=== PATIENT | female | born 2000 | race African-American/Black ===

== ENCOUNTER 2024-01-12 15:26 | Observation (INO) | payer SELFPAY ==
--- NOTE | ~2024-01-12 | US_ITS ---
EXAMINATION: US OB follow up DATE: 01/12/2024 17:49 ELECTROENCEPHALOGRAPHIC TECHNOLOGIST INDICATION: Follow-up COMPARISON: None TECHNIQUE: Real-time transabdominal obstetric ultrasound. FINDINGS: 7 para 5 Estimated date of delivery by last menstrual period is 05/14/2024 cardiac activity is identified at a rate 136 bpm. A single intrauterine gestation is identified in breech presentation with placenta anterior and low-l purvi (2.7 cm from the cervix). The cervix measures 6.4 cm in length and is heterogeneous in echogenicity. The amniotic fluid index measures 12 cm (normal is between 9.7 and 22 cm) and is subjectively normal. The following biometric data were obtained: Biparietal diameter (BPD): 5.15 cm; head circumference (HC): 19.7 cm; abdominal circumference (AC): 1 6.9 cm; femur length (FL): 3.9 cm. These measurements are concordant. Estimated weight is 487 g +/- 73 g, which correlates with the 34th percentile when 05/17/2024 is used as estimated date of delivery. As single measurements, these parameters are each equal to the following estimated gestational ages: BPD: 21 weeks 4 days. HC: 21 weeks 6 days. AC: 21 weeks 6 days. FL: 22 weeks 3 days. estimated gestational age based solely on measurements from this exam is 22 weeks 0 days +/- 1 weeks 4 days. Estimated date of delivery by ultrasound is 05/17/2024 IMPRESSION: Single intrauterine gestation with an approximate gestational age of 22 weeks and 0 days, with cardiac activity identified. The placenta is low-lying, approximately 2.7 cm away from the cervix which measures 6.4 cm in length but is heterogeneous in echogenicity. Reviewed, dictated and finalized at location A. TROENCEPHALOGRAPHIC TECHNOLOGIST IMPRESSION: Single intrauterine gestation with an approximate gestational age of 22 weeks a nd 0 days, with cardiac activity identified. The placenta is low-lying, approximately 2.7 cm away from the cervix which elsi ures 6.4 cm in length but is heterogeneous in echogenicity.
[2024-01-12 16:02] VITALS: BP 101/58; PULSE 86
--- NOTE | 2024-01-12 16:46 | OBADM ---
This patient, Glenny Olivares, admitted to the OB room OB Post 117 for observation. Patient/family oriented to hospital policies and general routines including ID bracelet, bed and alarms, visiting hours, pain management, procedures, bathroom and other care routines, personal items, smoking policy, room service/diet, and visiting hours. Patient/Family are encouraged to report perceived risks to care and to ask questions if they do not understand what they are told or what they should do.
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
--- NOTE | 2024-01-18 20:28 | PM.OBTRLD ---
OB - Triage/Final Diagnosis Visit Information Comments/Additional reasons for admission: I have assessed the risk for this patient, Glenny Olivares, and determined that she would benefit from observation care. Final Diagnosis (1) Abdominal trauma: Code(s): S39.91XA - Unspecified injury of abdomen, initial encounter Status: Acute (2) : Code(s): Z34.90 - Encounter for supervision of normal , unspecified, unspecified trimester Status: Acute
== END 2024-01-12 17:45 | disposition home or self-care (01) ==
PROVIDERS: Admitting Provider Obstetrics & Gynecology; Visit Provider Obstetrics & Gynecology
DX: O9A.212 Injury, poisoning and certain other consequences of external causes complicating pregnancy, second trimester (principal); S39.91XA Unspecified injury of abdomen, initial encounter; Z3A.22 22 weeks gestation of pregnancy
CPT/HCPCS: 76816; G0378

== ENCOUNTER 2024-02-08 09:35 | Observation (INO) | payer MEDICAID, SELFPAY ==
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
[2024-02-08 09:59] VITALS: BP 109/48; PULSE 99
[2024-02-08 10:01] VITALS: BP 104/56; PULSE 100
[2024-02-08 10:30] VITALS: BP 108/65; PULSE 98
[2024-02-08 10:40] VITALS: BMI 33.7
--- NOTE | 2024-02-08 10:52 | OBADM ---
This patient, Glenny Olivares, admitted to the OB room 113 for observation. Patient/family oriented to hospital policies and general routines including ID bracelet, bed and alarms, visiting hours, pain management, procedures, bathroom and other care routines, personal items, smoking policy, room service/diet, and visiting hours. Patient/Family are encouraged to report perceived risks to care and to ask questions if they do not understand what they are told or what they should do.
[2024-02-08 11:00] VITALS: BP 114/62; PULSE 95; RESP 16; TEMP 36.6
--- NOTE | 2024-02-08 11:07 | PC.NURSE ---
Pt states she has a appointment at [facility] on 02/15. Asked pt where she plans on delivering at and pt is unsure. Informed pt that I just want to make sure she gets care started and is seen. Informed her that Dr. Sultana who is the doctor that cared for her when she was here in December would also care for her if she planned on delivering here. Asked pt where she lives and she states she is currently living in a hotel with her children. She was in a [facility] until Jan 28 when her 30 day program was up and she had to leave. 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 Asked pt if I could call care coordination to see if they had any way of assisting her with housing. Pt is agreeable. Consult put in and voice message left for them. Pt also given [employer] QR code.
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
--- NOTE | 2024-02-08 13:00 | PC.NURSE ---
Dr. Sultana on unit and reviewed pictures of U/S on [facility], OK to let pt eat. Informed care coordination is coming.
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
--- NOTE | 2024-02-08 14:29 | PC.NURSE ---
Dr. Sultana given official U/S report. Informed care coordination has talked with pt, but have been unable to find her additional housing at this time. states he would be glad to continue her care and for pt to call office, but if she has a problem getting an appointment or her [place] Medicaid doesn't cover here, pt to keep appointment in [place] on 02/15 if she can't be seen in his office sooner than that. Informed pt states her abdominal soreness has changed to sharp pain since she ate. Pt had a normal bowel movement yesterday. Pt may have a dose of Tylenol before discharging pt.
--- NOTE | 2024-02-08 14:29 | PC.NURSE ---
Dr. Sultana also informed pt hasn't had any further vaginal spotting since arrival.
[2024-02-08] MEDS: ACETAMINOPHEN 500 MG TABLET 1000 MG PO (14:53)
--- NOTE | 2024-03-08 11:09 | PM.OBTRLD ---
OB - Triage/Final Diagnosis Visit Information Comments/Additional reasons for admission: I have assessed the risk for this patient, Glenny Olivares, and determined that she would benefit from observation care. Final Diagnosis (1) Blunt abdominal trauma: Code(s): S39.91XA - Unspecified injury of abdomen, initial encounter Status: Acute (2) : Code(s): Z34.90 - Encounter for supervision of normal , unspecified, unspecified trimester Status: Acute
== END 2024-02-08 14:58 | disposition home or self-care (01) ==
PROVIDERS: Admitting Provider Obstetrics & Gynecology; Visit Provider Obstetrics & Gynecology
DX: O99.891 Other specified diseases and conditions complicating pregnancy (principal); S39.91XA Unspecified injury of abdomen, initial encounter; Z3A.26 26 weeks gestation of pregnancy
CPT/HCPCS: 76815; A9270; G0378; G0379